=== PATIENT | female | born 1990 | race Two or more races ===

== ENCOUNTER 2017-09-04 09:42 | Emergency (ER) | payer OTHER ==
[~2017-09-04] VITALS: Ht 157.5 cm; Wt 86.2 kg
[2017-09-04 09:42] VITALS: BP 143/73
[2017-09-04] MEDS ORDERED: Tetanus/Diptheria/Pertussis Vaccine 0.5ml Syr IM ONE (10:15)
[2017-09-04] MEDS ORDERED: Bacitracin Oint UD TOPIC ONE ×2 (10:27→10:30)
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
[2017-09-04] MEDS ORDERED: CEPHALEXIN500 MG ORAL (11:12)
[2017-09-04] MEDS ORDERED: IBUPROFEN800 MG ORAL (11:12)
[2017-09-04 11:25] VITALS: BP 134/69
[2017-09-04 11:35] VITALS: BP 143/73
== END 2017-09-04 11:41 | disposition home or self-care (01) ==
LOC: EDBD 09:42 → EMR 10:00
DX: S80.211A Abrasion, right knee, initial encounter (principal); S80.11XA Contusion of right lower leg, initial encounter; V13.4XXA Pedal cycle driver injured in collision with car, pick-up truck or van in traffic accident, initial encounter; Y93.55 Activity, bike riding; Y92.410 Unspecified street and highway as the place of occurrence of the external cause; Z23 Encounter for immunization
CPT/HCPCS: 90471; 90715; 99283